=== PATIENT | male | born 1940 | race Two or more races ===

== ENCOUNTER → 2025-02-22 | Outpatient (CLI) | payer MEDICARE, OTHER, SELFPAY ==
--- NOTE | 2025-02-22 10:00 | XR_ITS ---
Examination: CT abdomen with intravenous contrast CT pelvis with intravenous contrast 2-D coronal reconstructions 2-D sagittal reconstructions Date and time of exam:February 22, 2025 0926 hours Comparison November 25, 2022 INDICATIONS: History left renal cell carcinoma partial nephrectomy, restaging. CTDI: vol (mGy) 19.7 DLP: (mGycm) 1171 Technique: Multiple axial sections of the abdomen and pelvis have been obtained. 64 slice high-resolution scanner used. 3 mm axial sections have been obtained, post intravenous injection 60 cc [id number] 2-D sagittal, coronal reconstructions obtained. Low dose protocols were performed. One or more of the following dose reduction techniques were used; automated exposure control, adjustment of the mA and/or KV according to patient size, use of iterative reconstruction technique. 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
== END | disposition home or self-care (01) ==
LOC: CCTX 09:05
PROVIDERS: PCP Internal Medicine Hematology; Referring Provider Urology; Visit Provider Urology
DX: C64.2 Malignant neoplasm of left kidney, except renal pelvis (principal)
CPT/HCPCS: 74177; A4649; Q9967

== ENCOUNTER → 2025-03-05 | Outpatient (BNVA) | payer MEDICARE, OTHER, SELFPAY | END | disposition home or self-care (01) | PROVIDERS: PCP Internal Medicine Hematology; Referring Provider Internal Medicine Hematology; Visit Provider Urology | DX: C61 Malignant neoplasm of prostate (principal); C64.2 Malignant neoplasm of left kidney, except renal pelvis; N28.89 Other specified disorders of kidney and ureter; I10 Essential (primary) hypertension | CPT/HCPCS: 81003; 99212; G0463 ==

== ENCOUNTER → 2025-09-17 | Outpatient (BNVA) | payer MEDICARE, OTHER, SELFPAY | END | disposition home or self-care (01) | PROVIDERS: PCP Internal Medicine Hematology; Referring Provider Internal Medicine Hematology; Visit Provider Urology | DX: C61 Malignant neoplasm of prostate (principal); C64.2 Malignant neoplasm of left kidney, except renal pelvis; I10 Essential (primary) hypertension; E66.9 Obesity, unspecified; Z68.27 Body mass index [BMI] 27.0-27.9, adult; Z90.5 Acquired absence of kidney | CPT/HCPCS: 81003; 99212; G0463 ==